=== PATIENT | female | born 1995 | race Caucasian/White ===

== ENCOUNTER 2018-02-23 11:25 | Emergency (ER) | payer OTHER, MEDICAID ==
[2018-02-23] MEDS: IBUPROFEN 600 MG TAB PO (12:36)
[2018-02-23] MEDS: hydrOXYzine HCL 10 MG TAB PO (12:59)
== END 2018-02-23 13:15 | disposition home or self-care (01) ==
LOC: FTE 11:25
DX: R07.89 Other chest pain (principal); F41.9 Anxiety disorder, unspecified
CPT/HCPCS: 99283-25; Z7502

== ENCOUNTER 2018-06-30 01:42 | Emergency (ER) | payer SELFPAY, OTHER | END 2018-06-30 03:19 | disposition home or self-care (01) | LOC: FTE 01:42 | DX: F43.9 Reaction to severe stress, unspecified (principal) | CPT/HCPCS: 93005; 99283-25 ==

== ENCOUNTER 2018-10-12 17:32 | Emergency (ER) | payer MEDICAID ==
[2018-10-12] MEDS: BUPIVACAINE 0.25% (MPF) 10 ML 10 ML VIAL INJ (18:52)
[2018-10-12] MEDS: BUPIVACAINE 0.25% (MPF) 30 ML INJ INJ (18:53)
== END 2018-10-12 19:25 | disposition home or self-care (01) ==
LOC: FTE 17:32
DX: M62.830 Muscle spasm of back (principal)
CPT/HCPCS: 20552; 99283-25